=== PATIENT | female | born 1955 | race Caucasian/White ===

== ENCOUNTER 2018-02-02 08:34 | Day surgery (SDC) | payer MEDICAID ==
[2018-02-02] MEDS ORDERED: Lactated Ringers 1,000 ML IV SCH (09:30)
[2018-02-02] MEDS ORDERED: Midazolam 1 MG/ML 2 ML SDV ONE (10:17)
[2018-02-02] MEDS ORDERED: Propofol 200 MG/20 ML SDV ONE ×2 (10:17→10:51)
[2018-02-02] MEDS ORDERED: fentaNYL 100 MCG/2 ML SDV ONE (10:17)
[2018-02-02] MEDS ORDERED: Lidocaine 2% 100 MG/5 ML Syringe ONE (10:55)
--- NOTE | 2018-02-03 08:42 | OR ---
DATE OF PROCEDURE: 02/02/2018 PROCEDURE: Colonoscopy. FINDINGS: Diverticulosis, mild. COMPLICATIONS: None. DIETARY SERVICES DIRECTOR: None. PREOPERATIVE DIAGNOSIS: Family history of colorectal cancer. POSTOPERATIVE DIAGNOSIS: Family history of colorectal cancer. RISKS: Risks, benefits, alternatives, and limitations including, but not limited to infection, bleeding, perforation, false positives, and false negatives were all explained to the patient and wished to proceed. PROCEDURE IN DETAIL: The patient was placed in left lateral decubitus position. Digital rectal exam was performed without abnormality. The scope was introduced and advanced atraumatically to the ileocecal valve. The scope was brought back to the ascending, transverse, descending colon, and retroflexed. The patient did have diverticulosis and described as mild. No evidence of old or new blood. No polyps, masses, or bleeding. The patient tolerated the procedure well. Shree Damon MD /[id number]
== END 2018-02-02 12:00 | disposition home or self-care (01) ==
LOC: JP.SDS 08:34
PROVIDERS: ATTEND Surgery
DX: Z12.11 Encounter for screening for malignant neoplasm of colon (principal); K57.30 Diverticulosis of large intestine without perforation or abscess without bleeding; Z80.0 Family history of malignant neoplasm of digestive organs
CPT/HCPCS: 45378; J2250; J2704; J3010; J7120

== ENCOUNTER 2020-08-03 11:00 | Emergency (ER) | payer MEDICAID ==
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
--- NOTE | 2020-08-04 10:03 | CR ---
CHEST: Portable 08/03/2020 at 11:57 AM CLINICAL HISTORY:Carbon monoxide exposure COMPARISON:CT 10/31/2019 FINDINGS: The heart size, pulmonary vascularity and hilar structures are normal. No infiltrate effusion or pneumothorax is seen. IMPRESSION: No acute cardiopulmonary process.
== END 2020-08-03 13:29 | disposition home or self-care (01) ==
LOC: JP.ED 11:00
DX: T58.11XA Toxic effect of carbon monoxide from utility gas, accidental (unintentional), initial encounter (principal); Z88.2 Allergy status to sulfonamides; Z98.51 Tubal ligation status; Z88.0 Allergy status to penicillin; Z88.1 Allergy status to other antibiotic agents; Z88.5 Allergy status to narcotic agent; Z88.8 Allergy status to other drugs, medicaments and biological substances; Y92.009 Unspecified place in unspecified non-institutional (private) residence as the place of occurrence of the external cause
CPT/HCPCS: 36415; 71045; 71045-26; 80048; 82550; 82803; 83605; 84484; 85025; 93005; 93010; 99284-25

== ENCOUNTER 2020-10-02 14:29 | Emergency (ER) | payer MEDICAID ==
[2020-10-02] MEDS ORDERED: Ondansetron 4 MG Tab.DIS PO ONE (15:00)
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
== END 2020-10-02 16:37 | disposition home or self-care (01) ==
LOC: JP.ED 14:29
DX: S00.211A Abrasion of right eyelid and periocular area, initial encounter (principal); R55 Syncope and collapse; R11.2 Nausea with vomiting, unspecified; Z88.8 Allergy status to other drugs, medicaments and biological substances; Z88.5 Allergy status to narcotic agent; Z88.1 Allergy status to other antibiotic agents; Z88.0 Allergy status to penicillin; Z88.2 Allergy status to sulfonamides; Z77.22 Contact with and (suspected) exposure to environmental tobacco smoke (acute) (chronic); W22.8XXA Striking against or struck by other objects, initial encounter
CPT/HCPCS: 99283; A9270-GY

== ENCOUNTER 2022-02-03 07:56 | Emergency (ER) | payer MEDICAID | END 2022-02-03 09:19 | disposition home or self-care (01) | LOC: JP.ED 07:56 | DX: N39.0 Urinary tract infection, site not specified (principal); E78.00 Pure hypercholesterolemia, unspecified; K21.9 Gastro-esophageal reflux disease without esophagitis; Z88.0 Allergy status to penicillin; Z88.2 Allergy status to sulfonamides; Z88.5 Allergy status to narcotic agent; Z88.8 Allergy status to other drugs, medicaments and biological substances | CPT/HCPCS: 81001; 87086; 87186; 99282; 99283 ==